=== PATIENT | female | born 1985 | race Caucasian/White ===

== ENCOUNTER 2020-05-21 07:08 | Inpatient (IN) | payer BC, SELFPAY ==
[2020-05-21] VITALS (24 sets, daily range): BP systolic 67–133; BP diastolic 28–108; PULSE 84–116; RESP 18; TEMP 36.7–37.3; O2SAT 98; BMI 34.0
[2020-05-21 07:47] LABS: Basophils Percent Auto 0.3 % (0.2-1.2); Eosinophils Absolute Auto 0.1 K/mm3 (0-0.3); Eosinophils Percent Auto 0.8 % (0-4.4); Hematocrit 40.8 % (37.0-47.0); Hemoglobin 13.2 g/dL (12.0-15.0); Immature Granulocyte Absolute 0.09 K/mm3 (0.00-0.031); Immature Granulocyte Percent A 0.9 % (0-0.5); Lymphocytes Absolute Auto 1.71 K/mm3 (0.9-3.2); Lymphocytes Percent Auto 17.6 % (18.3-44.2); Mean Corpuscular HGB Conc 32.4 g/dl (32-36); Mean Corpuscular Hemoglobin 28.1 pg (26-34); Mean Corpuscular Volume 86.8 fl (80-100); Mean Platelet Volume 10.4 fl (7.4-10.4); Monocytes Absolute Auto 0.6 K/mm3 (0.1-0.6); Monocytes Percent Auto 6.3 % (2.6-8.5); Neutrophils Absolute Auto 7.2 K/mm3 (1.3-6.7); Neutrophils Percent Auto 74.1 % (45.5-73.1); Platelet Count Result 214 k/mm3 (150-375); Red Cell Distribution Width 14.7 % (11.5-14.5); White Blood Count 9.7 K/mm3 (4.5-10.0)
--- NOTE | 2020-05-21 08:20 | P.HP_ITS ---
Obstetrics - Admit Note Admission Note: AROM clear fluid /- record reviewed. No pertinent additions to the history and/or any subsequent changes in the physical findings that are not consistent with the expected course of the were found. Additions to the history and/or subsequent changes in the physical findings fo llow. None.
--- NOTE | 2020-05-21 08:34 | WPDANESEPP ---
Anes - Eval Pre Procedure Procedure: labor epidural Date/Time: 05/21/20 08:34 Preop Diagnosis: labor pain Pre Op Diagnosis: Induction of Labor Patient Data Age: 34 Gender: F Height: 5 ft 6.5 in Weight: 97 kg Last Vital Signs Temp 36.7 C 05/21/20 08:00 Pulse 84 05/21/20 08:31 BP 117/63 05/21/20 08:31 Allergies Allergy/AdvReac Type Severity Reaction Status Date / Time No Known Drug Allergies Allergy Unknown Unknown Verified 04/20/20 12:41 Home Medications Medication Instructions Recorded Confirmed Type Probiotic 04/20/20 History [id number] 1 tablet PO DAILY 04/20/20 05/21/20 History [ADVANCED Calcium] ergocalciferol (vitamin D2) 1,250 mcg PO WEEKLY 04/20/20 05/21/20 History [Vitamin D2] prenat.vits,isela,yfn-[id number]-eosoh 1 tablet PO DAILY 04/20/20 05/21/20 History [ #2] Laboratory Tests 05/21/20 05/21/20 07:37 07:37 WBC 9.7 K/mm3 K/mm3 (4.5-10.0) RBC 4.70 M/mm3 M/mm3 (4.2-5.4) Hgb 13.2 g/dL g/dL (12.0-15.0) Hct 40.8 % % (37.0-47.0) MCV 86.8 fl fl (80-100) MCH 28.1 pg pg (26-34) MCHC 32.4 g/dl g/dl (32-36) RDW 14.7 % H % (11.5-14.5) Plt Count 214 k/mm3 k/mm3 (150-375) MPV 10.4 fl fl (7.4-10.4) Immature Gran % (Auto) 0.9 % H % (0-0.5) Neut % (Auto) 74.1 % H % (45.5-73.1) Lymph % (Auto) 17.6 % L % (18.3-44.2) [place] % (Auto) 6.3 % % (2.6-8.5) Eos % (Auto) 0.8 % % (0-4.4) Baso % (Auto) 0.3 % % (0.2-1.2) Lymph # (Auto) 1.71 K/mm3 K/mm3 (0.9-3.2) [place] # (Auto) 0.6 K/mm3 K/mm3 (0.1-0.6) Eos # (Auto) 0.1 K/mm3 K/mm3 (0-0.3) Baso # (Auto) 0.0 K/mm3 K/mm3 (0.0-0.1) Abs Immat Gran (auto) 0.09 K/mm3 H K/mm3 (0.00-0.031) Absolute Neuts (auto) 7.2 K/mm3 H K/mm3 (1.3-6.7) Absolute Nucleated RBC 0.0 K/mm3 K/mm3 (0.0-0.012) Nucleated RBC % 0.0 % % (0.0-0.2) RPR Pending Patient hx anesthesia problems: none Family hx anesthesia problems: none [facility] Family History Family History (Updated 04/20/20 @ 12:56 by Ronaldo Elaine RN) Father Patient's father is in good health Mother Chronic obstructive pulmonary disease Grandparent Lupus Lung cancer Sibling Epilepsy Autism Scoliosis Grandparent Acute myocardial infarction Emphysema lung Social History Social History Smoking status: Never smoker Alcohol intake: current Substance use: never Spiritual care concerns: No Exam Day of Procedure 05/21/20 08:34
--- NOTE | 2020-05-21 17:54 | PM.OBPRVD ---
OB - Delivery Note Procedure Delivery date: 05/21/20 Procedure: events: Labor Induction Intrapartal events: None Induction method: AROM Delivery monitor: external FHT and external uterine Route of delivery: Laceration Description: None Specimen: No Quantitative Blood Loss (ml): 100 Anesthesia type: None Disposition: observation [place] Baby Date of : 05/21/20 Time of : 17:37 Weeks of gestation at delivery: 41 gender: Male Weight (pounds): 8 Weight (ounces): 6 presentation: vertex position: Left Occiput Anterior Placenta delivery description: Spontaneous cord vessel description: 3 Vessels score one minute: 8 score five minutes: 9
[2020-05-21] MEDS: BENZOCAINE 20% AER SPR (*SP) 56 GM CAN 1 SPRAY TOPICAL (18:49)
[2020-05-21] MEDS: LANOLIN (LANSINOH) 7.5 GM CREAM 1 APPLIC TOPICAL (18:49)
[2020-05-21] MEDS: WITCH HAZEL 40 PADS 1 PAD TOPICAL (18:49)
--- NOTE | 2020-05-21 20:24 | OBPPTRN ---
Patient transferred to post room # 280 via wheelchair. Support person and present. Oriented to unit, room, information board, rooming in, admission packet and security measures. Patient verbalizes understanding.
[2020-05-22 05:14] LABS: Hematocrit 34.7 % (37.0-47.0); Hemoglobin 11.3 g/dL (12.0-15.0)
[2020-05-22] MEDS: MULTIVIT/MIN/PREN/FOL AC/IRON TABLET 1 TAB PO (07:11)
[2020-05-22] MEDS: DOCUSATE SODIUM 100 MG CAPSULE PO ×2 (07:11→17:04)
[2020-05-22 08:00] VITALS: BP 108/73; PULSE 81; RESP 18; TEMP 36.9
--- NOTE | 2020-05-22 09:02 | PM.OBPNVD ---
OB - PN: Subj Subjective Date/time seen: 05/22/20 09:02 Patient comments: no complaints and pain well controlled baby status: doing well OB - PN: Obj Data Labs CBC & Chem 7: 05/22/20 04:22 Labs: Laboratory Results - last 24 hr 05/21/20 05/22/20 07:37 04:22 Hgb 11.3 L Hct 34.7 L Blood Type O Negative Antibody Screen Negative OB - PN A/P Plan day: 1 Plan: routine care, discharge home and follow up 6 weeks Comments: unsure bc Time Spent With Patient Time: Total time spent is greater than 50% in coordination of care (as documented) at patient's floor/unit and/or counseling patient: Exam : Bimanual exam- vagina & uterus: other (Uterus firm, nt @U)
--- NOTE | 2020-05-22 10:00 | PC.NURSE ---
Patient was given the opportunity to view the discharge video Mother & Baby Care, The First Two Weeks and to ask questions. Patient declined viewing the video and has been given the mother/baby guide for home reference.
--- NOTE | 2020-05-22 16:33 | PC.NURSE ---
Self care and infant care discharge instructions given including follow up visit date and time. Pt. verbalized understanding. No questions or concerns noted. Very pleasant and cooperative. Anxious for discharge. at side.
[2020-05-22 21:11] LABS: Rapid Plasma Reagin Non-Reactive (NonReactive)
[2020-05-25 10:28] VITALS: BP 127/89; PULSE 89; RESP 14; TEMP 37.7
--- NOTE | 2020-06-01 08:23 | PM.OBDSVD ---
DS: Admitting Diagnosis Admitting Diagnosis Admitting Diagnosis: Post Term induction of labor DS: Discharge Diagnosis Discharge Diagnosis (1) (normal spontaneous vaginal delivery): Code(s): O80 - Encounter for full-term uncomplicated delivery Status: Acute OB - DS: Summary OB Procedures : Ultrasound OB Procedures Intrapartum: Spontaneous Vag Delivery OB Procedures: : None Time Spent with Patient Time attestation: Total time spent providing and/or coordinating discharge services: Discharge Plan Discharge Attending physician on discharge: El Fernandez Discharging Clinician: El Fernandez Patient Disposition: Home, Self-Care Activity: may shower and pelvic rest Diet: regular Discharge Instructions: Education: Mom and Baby Guide Given to: Mother Follow-Up: Call your delivering provider's office for an appointment to be seen in: 4 Weeks Mom and baby should come to the [facility] for the follow-up appointment. Appointment Date/Time: May 22, 2020 at 10:00 am What to expect at your follow-up visit: Blood Pressure Check Physical Assessment Call [phone] if you are unable to keep your appointment time. BREAST CARE: * Wear a snug supportive bra. * For engorgement discomfort: Breast Feeding: * Apply warm moist washcloths * Express milk as needed to relieve engorgement * Wear loose clothing * For sore nipples: * Identify correct latch-on * Apply warm moist washcloths before and after nursing * Air dry nipples after nursing * May apply [place] cream to nipples EPISIOTOMY/PERINEAL CARE: * Until bleeding stops, use your tobi bottle after urinating * Change your pad frequently throughout the day * You may take sitz baths several times a day (fill your bathtub with warm water and soak for 20 minutes.) Do NOT bathe in the water * No tub baths until seen by your physician - You may shower ACTIVITY: * Rest as much as possible. * Do not exercise or lift anything heavier than your baby (such as laundry or other children.) * Avoid stairs or driving as much as possible. * Do not put anything into the vagina. No douching, tampons, or sexual activity until seen by physician. NOTIFY PHYSICIAN IF YOU HAVE ANY QUESTIONS OR IF ANY OF THE FOLLOWING SYMPTOMS OCCUR: * If your episiotomy becomes red, swollen, or more painful than what you have experienced in the hospital. * If your vaginal bleeding becomes foul smelling. * If your vaginal bleeding becomes more heavy than a period or if your bleeding changes from pink to bright red. However, you may pass an occasional walnut-sized clot once or twice for the first week . * If you experience a sharp, shooting pain in you calves. * If you discover a hard, reddened area on your breast or if you experience flu-like symptoms. DIET: * Eat regular, well-balanced meals. * Drink plenty of fluids daily. If , drink to thirst. Patient Instructions: Antibiotic Form Stand Alone Forms: General Discharge Information Follow-up/Referrals: El Fernandez MD [Physician] - Discharge Medications: Continued ergocalciferol (vitamin D2) [Vitamin D2] 1,250 mcg (50,000 unit) Capsule 1,250 mcg PO WEEKLY RF: 0 prenat.vits,isela,nbs-hfar-nknwp Tablet 1 tablet PO DAILY RF: 0 ADVANCED Calcium 200 mg calcium- 200 unit Tablet 1 tablet PO DAILY RF: 0 Probiotic RF: 0 Date of admission: 05/21/20 07:08 Primary Care Provider: Yonis Calloway Admitting Provider: El Fernandez Attending physician on admission: Beata Carpio Condition: Stable
== END 2020-05-22 18:05 | disposition home or self-care (01) | DRG 807 ==
LOC: ANHLDR 18:01 → ANHOB2 21:56 → ANHLDR 05-26 10:04 → ANHOB2 05-26 10:04
PROVIDERS: Admitting Provider Obstetrics & Gynecology; PCP Internal Medicine; Visit Provider Obstetrics & Gynecology Gynecology
DX: O80 Encounter for full-term uncomplicated delivery (principal); Z37.0 Single live birth; Z3A.41 41 weeks gestation of pregnancy
CPT/HCPCS: 36415; 85014; 85018; 85025; 86592; 86850; 86900; 86901; A9270